=== PATIENT | male | born 1995 | race Caucasian/White ===

== ENCOUNTER 2018-12-04 17:52 | Emergency (ER) | payer BC, OTHER ==
[~2018-12-04] VITALS: Ht 160 cm; Wt 59.0 kg
[2018-12-04] MEDS ORDERED: HYDROXYZINE HCL25 M1 PO (18:28)
[2018-12-04] MEDS ORDERED: PREDNISONE 20 M20 MG PO (18:28)
[2018-12-04 18:52] VITALS: BP 124/73
== END 2018-12-04 18:53 | disposition home or self-care (01) ==
LOC: ER 17:52
DX: R21 Rash and other nonspecific skin eruption (principal); F10.10 Alcohol abuse, uncomplicated